=== PATIENT | female | born 1980 | race Caucasian/White ===

== ENCOUNTER 2016-06-13 22:14 | Emergency (ER) | payer MEDICAID ==
[~2016-06-13 22:14] MED LIST: ABILIFY5 M1 PO; ABILIFY5 MG PO; ADVAIR 25028 BLISTER INH; ALBUTEROL INHALER INH; ALBUTEROL2.5 MG/0.1 IH; AMITRIPTYLINE H25 M1 PO; AMITRIPTYLINE H25 MG PO; AMOXICILLIN PO; AUGMENTIN875 MG/TA1 PO; B COMPLEX1 CAP PO; BOTOX; BOTOX IJ; CALCITRATE CAPL1 TAB PO; CALCIUM CIT-VI1 EACH PO; CELEBREX200 M1 PO; CELEBREX200 MG PO; CELEXA PO; CELEXA20 M1 PO; CITALOPRAM PO; CLARITIN10 M2 PO; COMPAZINE10 MG PO; COUMADIN1 MG PO; COUMADIN4 MG PO; COUMADIN5 M1 PO; CYCLOBENZAPRINE5 M1 PO; DELTASONE10 MG PO; DICLOFENAC POTA50 MG PO; DUONEB 2.5-0.5 M3 ML IH; DUONEB 2.5-0.5MG3 M1 AERO NEB; FIORICET 50-301 EAC1 PO; FIORICET1 TA1 PO; FIORICET1 TAB PO; FIORINAL 50-321 EACH PO; FLONASE16 G1; GABAPENTIN PO; GABAPENTIN600 MG PO; HYDRALAZINE HCL25 M1 PO; HYDROXYZINE HCL25 M1 PO; HYDROXYZINE HCL25 MG PO; IBUPROFEN600 M1 PO; LEVAQUIN750 MG PO; LEVOFLOXACIN750 MG PO; LINZESS PO; LINZESS145 MC1; LINZESS145 MC1 PO; LINZESS290 MC1 PO; LIPITOR10 M1 PO; LOMOTIL 2.5-0.1 EACH PO; LOVENOX150 MG/ML SQ; LYRICA PO; LYRICA150 MG PO; LYRICA150 MG/CAP PO; LYRICA75 MG PO; MAGNESIUM CITR296 M1 PO; METFORMIN HCL500 M2 PO; METOCLOPRAMIDE10 M1 PO; MUCINEX600 MG PO; NO HOME MEDS; NORCO 5-325 TA1 EACH PO; NORCO 5/325 TAB1 TAB PO; NORCO 7.5/325 T1 TAB PO; NORCO 7.5/3251 TA1 PO; OMEPRAZOLE PO; OMEPRAZOLE20 M2 PO; OMEPRAZOLE20 M3 PO; OMEPRAZOLE40 MG PO; PEN-VEE K500 MG PO; PERCOCET 5/3251 TAB PO; PERCOLONE5 MG PO; POLYTRIM EYE DR10 ML RIGHT EYE; PREDNISON PO; PREDNISONE; PREDNISONE20 MG PO; PROMETHAZINE HC25 M3 PO; PROVENTIL HFA6.7 G1 INH; PROVENTIL HFA6.7 GM IH; QVAR INH; REGLAN10 MG PO; RELPAX PO; RELPAX20 MG PO; RELPAX40 M1 PO; RELPAX40 MG PO; RITALIN PO; RITALIN10 M1 PO; RITALIN10 MG PO; RITALIN20 MG PO; SINGULAIR10 M1 PO; SKELAXIN800 M3 PO; TIZANIDINE HCL2 M1 PO; TOPAMAX PO; TOPAMAX100 M1 PO; TOPAMAX100 M2 PO; TRAZODONE HCL100 M1 PO; TRICOR145 M2 PO; VIBRAMYCIN100 MG PO; VITAMIN D PO; VITAMIN D50000 UNI2 PO; VITAMIN D50000 UNIT PO; XARELTO10 M1 PO; XARELTO15 MG PO; ZANAFLEX2 M PO; ZANAFLEX2 M3 PO; ZITHROMAX250MG Z-PAK PO; ZITHROMAX500 M1 PO; ZOFRAN ODT4 MG/UDTAB PO; ZUPLENZ4 MG PO; ZYRTEC10 MG PO; ZYRTEC1010 PO; [UNRECOGNIZED DRUG - OTHER]; [UNRECOGNIZED DRUG - REMARK]; [UNRECOGNIZED DRUG - REMARK] PO
[2016-06-13] MEDS ORDERED: STOOL SOFTENER100 M2 PO (22:33)
[2016-06-13 22:45] LABS: URINE APPEARANCE CLEAR; URINE BILIRUBIN NEGATIVE (NEG); URINE BLOOD NEGATIVE (NEG); URINE COLOR YELLOW; URINE GLUCOSE (UA) NEGATIVE (NEG); URINE KETONE NEGATIVE (NEG); URINE LEUKOCYTE ESTERASE NEGATIVE (NEG); URINE NITRITE NEGATIVE (NEG); URINE PROTEIN NEGATIVE (NEG)
[2016-06-13 23:24] LABS: URINE EPITHELIAL CELLS RARE /[HPF] (0-10); URINE RBC 0 /[HPF] (0-5)
[2016-06-13] MEDS ORDERED: NORCO 5-325 TA1 EACH PO (23:32)
[2016-06-13] MEDS ORDERED: KEFLEX500 M4 PO (23:32)
[2016-09-07] MEDS ORDERED: DURAGESIC1 EAC1 TOP (14:45)
[2016-09-07] MEDS ORDERED: NEURONTIN400 M1 PO (14:45)
[2016-09-30] MEDS ORDERED: [UNRECOGNIZED DRUG - OTHER] PO (00:02)
[2016-11-01] MEDS ORDERED: FLONASE ALLERG9.9 ML (12:22)
[2016-11-01] MEDS ORDERED: POTASSIUM GLUC500 MG PO (12:24)
[2016-11-01] MEDS ORDERED: LISINOPRIL2.5 M1 PO (12:32)
[2016-11-01] MEDS ORDERED: ZOFRAN4 M2 PO (12:32)
[2016-11-01] MEDS ORDERED: VITAMIN D31000 UNI3 PO (12:34)
[2016-11-01] MEDS ORDERED: MUPIROCIN22 G2 TOP (15:44)
[2016-11-01] MEDS ORDERED: PROTONIX40 M2 PO (15:45)
[2016-11-01] MEDS ORDERED: LIDOCAINE HCL120 GM TOP (15:55)
[2016-11-01] MEDS ORDERED: RITALIN10 M1 PO (16:02)
[2016-11-01] MEDS ORDERED: CITALOPRAM HBR40 M1 PO (16:06)
[2016-11-01] MEDS ORDERED: SYMBICORT 80-41 PUFF INH (16:08)
== END 2016-06-13 23:37 ==
LOC: EDMED 22:14
PROVIDERS: Emergency Medicine
DX: R10.9 Unspecified abdominal pain (principal); R30.0 Dysuria; J45.909 Unspecified asthma, uncomplicated; K21.9 Gastro-esophageal reflux disease without esophagitis; F31.9 Bipolar disorder, unspecified; F17.200 Nicotine dependence, unspecified, uncomplicated; Z90.49 Acquired absence of other specified parts of digestive tract; Z90.710 Acquired absence of both cervix and uterus